=== PATIENT | female | born 1935 | race Caucasian/White ===

== ENCOUNTER 2020-07-30 07:02 | Inpatient (IN) | payer MEDICARE, OTHER ==
[~2020-07-30] VITALS: Ht 149.9 cm; Wt 68.0 kg
[2020-07-30] MEDS ORDERED: ONDANSETRON PF 4 MG/2 ML VIAL. IVP ONE ×2 (07:15→10:00)
[2020-07-30] MEDS ORDERED: IV NORMAL SALINE 1,000ML 1,000 ML IV ONE (07:15)
--- NOTE | 2020-07-30 07:29 | PHYS DOC ---
Past History Past Medical History: No Pertinent History Past Surgical History: Other Alcohol Use: None Drug Use: None General Adult EDM: Chief Complaint: NAUSEA/VOMITING/DIARRHEA HPI: HPI: 84-year-old female presents with nausea, dry heaving and generally feeling ill. She went to her primary care physician last week and was diagnosed with a sinus infection. She was placed on an oral antibiotic. She got "really sick" for the next 3 days so she called her primary doctor back and he discontinued that medicine and then gave her an IM shot of antibiotics on Wednesday. The patient has continued to have nausea through the weekend. She has been unable to keep down solid food. She has been able to drink some but she is worried about being dehydrated. She has generalized abdominal pain. She had one episode of diarrhea yesterday. She denies fever or chills. She was tested negative for COVID-19. Review of Systems: Review of Systems: Constitutional: Denies fever or chills Eyes: Denies change in visual acuity HENT: Denies nasal congestion or sore throat Respiratory: Denies cough or shortness of breath Cardiovascular: Denies chest pain or edema GI: Generalized abdominal pain, nausea, vomiting, diarrhea. Denies bloody stools. : Denies dysuria Musculoskeletal: Denies back pain or joint pain Integument: Denies rash Neurologic: Denies headache, focal weakness or sensory changes Endocrine: Denies polyuria or polydipsia Lymphatic: Denies swollen glands Psychiatric: Denies depression or anxiety Current Medications: Current Meds: Current Medications Medications (Trade) Dose Ordered Sig/Salvatore Start Time Stop Time Status Last Admin Dose Admin Iohexol (Omnipaque 300 Mg/ml) 75 ml 1X ONCE 07/30/20 07:30 07/30/20 07:31 Ondansetron HCl (Zofran) 4 mg 1X ONCE 07/30/20 07:15 07/30/20 07:24 DC Sodium Chloride 1,000 ml @ 1,000 mls/hr 1X ONCE 07/30/20 07:15 07/30/20 08:14 Allergies: Allergies: Allergies Coded Allergies Type Severity Reaction Last Updated Verified No Known Drug Allergies 07/19/14 No Physical Exam: PE: Constitutional: Well developed, well nourished, obese, no acute distress, non- toxic appearance. [] HENT: Normocephalic, atraumatic, bilateral external ears normal, oropharynx moist, no oral exudates, nose normal. [] Eyes: PERRLA, EOMI, conjunctiva normal, no discharge. [] Neck: Normal range of motion, no tenderness, supple, no stridor. [] Cardiovascular: Heart rate regular rhythm, no murmur [] Lungs & Thorax: Bilateral breath sounds clear to auscultation [] Abdomen: Bowel sounds normal, soft, no tenderness, no masses, no pulsatile masses. [] Skin: Warm, dry, no erythema, no rash. [] Back: No tenderness, no CVA tenderness. [] Extremities: No tenderness, no cyanosis, no clubbing, ROM intact, no edema. [] Neurologic: Alert and oriented X 3, normal motor function, normal sensory function, no focal deficits noted. [] Psychologic: Affect normal, judgement normal, mood normal. [] EKG: EKG: Sinus rhythm, rate 68, leftward axis, no ST elevations or depressions, right bundle branch block. [] Radiology/Procedures: Radiology/Procedures: [] Impressions: EXAM: Chest, abdomen and pelvis CT with intravenous contrast. HISTORY: Pain. TECHNIQUE: Computed tomographic images of the chest, abdomen and pelvis were obtained following the administration of intravenous contrast. Multiplanar reformatting was performed. *One or more of the following individualized dose reduction techniques were utilized for this examination: 1. Automated exposure control. 2. Adjustment of the mA and/or kV according to patient size. 3. Use of iterative reconstruction technique. COMPARISON: None. FINDINGS: Chest: The heart is normal in size. There is calcified atherosclerotic plaque involving the aorta, main aortic branch vessels and coronary arteries. There is calcification of the bilateral valve annulus. There are nonspecific mediastinal and hilar lymph nodes. For reference purposes, there is a prominent precarinal lymph node measuring 1.9 cm. There is a right thyroid nodule measuring 2.1 cm. There may be a tiny cyst or nodule within the left thyroid lobe. There is no pneumothorax. There is no pleural effusion. There is multifocal groundglass infiltrate within the right greater than left upper lobes, right middle lobe and right greater than left lower lobes. There are superimposed right basilar atelectasis or scarring. There is no consolidation. There is degenerative change involving the thoracic spine. There is no acute or suspicious osseous finding. Abdomen and pelvis: There is a 1.2 cm simple cyst within the left hepatic lobe. The liver, gallbladder, pancreas, spleen, and adrenal glands are unremarkable. There are not nonobstructing bilateral renal stones, measuring 2 mm on the right and 5 mm on the left. The urinary bladder is unremarkable. The uterus is retroverted and otherwise unremarkable. The ovaries are unremarkable. There is colonic diverticulosis. There is no convincing diverticulitis. There is no bowel obstruction. The aorta is normal in caliber. There is no lymphadenopathy. There is lumbar scoliosis and multilevel degenerative change involving the lumbar spine. There is no acute or suspicious osseous finding. IMPRESSION: 1. Multifocal bilateral groundglass pulmonary infiltrate. Correlate for pneumonia. 2. Colonic diverticulosis without evidence of diverticulitis. 3. Bilateral nephrolithiasis. 4. Simple hepatic cyst. 5. 2.1 cm right thyroid nodule and possible tiny left thyroid nodule or cyst. This can be better assessed with a thyroid sonogram. 6. Nonspecific mediastinal and hilar lymph nodes. These are likely physiologic or reactive given the aforementioned pulmonary findings. Electronically signed by: Savannah Hernandez MD (07/30/2020 8:36 AM) [id number] DICTATED AND SIGNED BY: SAVANNAH HERNANDEZ MD DATE: 07/30/20 0836 CC: NELIA WEEKS DO; CARLOS SHARP MD ~ Heart Score: Risk Factors: Risk Factors: DM, Current or recent (<one month) smoker, HTN, HLP, family history of CAD, obesity. Risk Scores: Score 0 - 3: 2.5% MACE over next 6 weeks - Discharge Home Score 4 - 6: 20.3% MACE over next 6 weeks - Admit for Clinical Observation Score 7 - 10: 72.7% MACE over next 6 weeks - Early Invasive Strategies Course & Med Decision Making: Course & Med Decision Making Pertinent Labs and Imaging studies reviewed. (See chart for details) The patient's labs are essentially unremarkable. Her urinalysis shows some white cells but few bacteria. Her CT scan has some significant findings of the lungs, but she is not having any respiratory symptoms. She also has other incidental findings on CT. See official read for more details. When I asked the patient about this she does remember that she thinks she has an old lung finding. I do not believe this is acute pneumonia. Patient had an episode of diarrhea in the emergency room. She does appear dehydrated we have given her a liter of normal saline. I do believe she can safely go home given her dehydration status and general weakness. We have tested her for COVID-19 even though she had a negative test 3 weeks ago. I spoke with Dr. Staton and he has accepted the patient for admission. [] Dragon Disclaimer: Dragon Disclaimer: This electronic medical record was generated, in whole or in part, using a voice recognition dictation system. Departure Departure: Impression: Primary Impression: Vomiting and diarrhea Disposition: ADMITTED INPT THIS HOSP Admitting Physician: Gustabo Staton Condition: STABLE Referrals: DOMINIQUE WILKINSON (PCP) NELIA WEEKS DO Jul 30, 2020 07:29
[2020-07-30] MEDS ORDERED: IOHEXOL 300 MG/ML 75 ML VIAL. IV ONE (07:30)
[2020-07-30 07:31] LABS: BASO % 1 % (0-3); EOS % 0 % (0-3); HEMATOCRIT 43.1 % (36.0-47.0); HEMOGLOBIN 14.4 g/dL (12.0-15.5); LYMPH # 1.1 x10^3/uL (1.0-4.8); LYMPH % 26 % (24-48); MEAN CORPUSCULAR HEMOGLOBIN 32 pg (25-35); MEAN CORPUSCULAR HGB CONC 34 g/dL (31-37); MEAN CORPUSCULAR VOLUME 94 fL (79-100); MONO # 0.6 x10^3/uL (0.0-1.1); MONO % 15 % (0-9); NEUT # 2.4 x10^3uL (1.8-7.7); NEUT % 58 % (31-73); PLATELET COUNT 151 x10^3/uL (140-400); RED BLOOD COUNT 4.57 x10^6/uL (3.50-5.40); RED CELL DISTRIBUTION WIDTH 11.9 % (11.5-14.5); WHITE BLOOD COUNT 4.2 x10^3/uL (4.0-11.0)
[2020-07-30 07:37] LABS: CALCIUM 8.5 mg/dL (8.5-10.1); CREATININE 1.2 mg/dL (0.6-1.0); GFR 42.6; POTASSIUM 3.5 mmol/L (3.5-5.1)
--- NOTE | 2020-07-30 07:38 | EKG ---
[address] [address] Test Date: 2020-07-30 Test Time: 07:30:48 Pat Name: MARIA E DODSON Department: Room: Gender: F Classics Professor: : [id number] Requested By: NELIA WEEKS Order Number: [id number] Reading MD: Dutch Ingram Measurements Intervals [place] Rate: 68 P: 36 [place]: 168 QRS: -17 QRSD: 112 T: 38 QT: 418 QTc: 449 Interpretive Statements SINUS RHYTHM LEFTWARD AXIS Electronically Signed On 07-31-2020 9:19:[address] TECH by Dutch Ingram
[2020-07-30 07:43] LABS: ALBUMIN 3.5 g/dL (3.4-5.0); ALBUMIN/GLOBULIN RATIO 0.9 (1.0-1.7); TOTAL BILIRUBIN 0.9 mg/dL (0.2-1.0); TOTAL PROTEIN 7.5 g/dL (6.4-8.2)
--- NOTE | 2020-07-30 08:40 | RAD ---
EXAM: Chest, abdomen and pelvis CT with intravenous contrast. HISTORY: Pain. TECHNIQUE: Computed tomographic images of the chest, abdomen and pelvis were obtained following the administration of intravenous contrast. Multiplanar reformatting was performed. *One or more of the following individualized dose reduction techniques were utilized for this examination: 1. Automated exposure control. 2. Adjustment of the mA and/or kV according to patient size. 3. Use of iterative reconstruction technique. COMPARISON: None. FINDINGS: Chest: The heart is normal in size. There is calcified atherosclerotic plaque involving the aorta, main aortic branch vessels and coronary arteries. There is calcification of the bilateral valve annulus. There are nonspecific mediastinal and hilar lymph nodes. For reference purposes, there is a prominent precarinal lymph node measuring 1.9 cm. There is a right thyroid nodule measuring 2.1 cm. There may be a tiny cyst or nodule within the left thyroid lobe. There is no pneumothorax. There is no pleural effusion. There is multifocal groundglass infiltrate within the right greater than left upper lobes, right middle lobe and right greater than left lower lobes. There are superimposed right basilar atelectasis or scarring. There is no consolidation. There is degenerative change involving the thoracic spine. There is no acute or suspicious osseous finding. Abdomen and pelvis: There is a 1.2 cm simple cyst within the left hepatic lobe. The liver, gallbladder, pancreas, spleen, and adrenal glands are unremarkable. There are not nonobstructing bilateral renal stones, measuring 2 mm on the right and 5 mm on the left. The urinary bladder is unremarkable. The uterus is retroverted and otherwise unremarkable. The ovaries are unremarkable. There is colonic diverticulosis. There is no convincing diverticulitis. There is no bowel obstruction. The aorta is normal in caliber. There is no lymphadenopathy. There is lumbar scoliosis and multilevel degenerative change involving the lumbar spine. There is no acute or suspicious osseous finding. IMPRESSION: 1. Multifocal bilateral groundglass pulmonary infiltrate. Correlate for pneumonia. 2. Colonic diverticulosis without evidence of diverticulitis. 3. Bilateral nephrolithiasis. 4. Simple hepatic cyst. 5. 2.1 cm right thyroid nodule and possible tiny left thyroid nodule or cyst. This can be better assessed with a thyroid sonogram. 6. Nonspecific mediastinal and hilar lymph nodes. These are likely physiologic or reactive given the aforementioned pulmonary findings. Electronically signed by: Savannah Barth MD (07/30/2020 8:36 AM) [id number]
[2020-07-30] MEDS ORDERED: CONTRAST GIVEN. MC PRN (10:15)
[2020-07-30 10:45] LABS: BACTERIA,URINE FEW /HPF (0-FEW); BILIRUBIN,URINE NEG (NEG); CLARITY,URINE HAZY; COLOR,URINE YELLOW; GLUCOSE,URINE NEG (NEG); NITRITE,URINE NEG (NEG); RBC,URINE OCC /HPF (0-2); UROBILINOGEN,URINE 0.2 mg/dL (0.2 mg/dL)
[2020-07-30 10:46] LABS: SQUAMOUS EPITHELIAL CELL,UR MANY /LPF
[2020-07-30] MEDS ORDERED: ONDANSETRON PF 4 MG/2 ML VIAL. IVP PRN (11:15)
--- NOTE | 2020-07-30 12:59 | HP ---
ADMIT DATE: 07/30/2020 ATTENDING PHYSICIAN: Dr. Hu. CHIEF COMPLAINT: Nausea, vomiting, diarrhea. HISTORY OF PRESENT ILLNESS: The patient is a very pleasant 84-year-old female, fairly active. She has been for the last 3 days. She went to see her primary care physician last week. She was placed on oral antibiotic, did not tolerate it well, was nauseated. She was given a shot of Rocephin on Wednesday. Continued to have symptoms of nausea over the weekend, throwing up, unable to keep anything down, drank some Gatorade. She is clinically dehydrated. She has had diarrhea. She tested negative for COVID-19. No hematemesis. No [id number] medication use. PAST MEDICAL HISTORY: Significant for degenerative arthritis. CURRENT MEDICATIONS: She is not on any significant prescription medications. ALLERGIES: She has no known drug allergies. SOCIAL HISTORY: She is a nonsmoker, nondrinker. She is . She lives independently. She takes care of several pets at home. She has been fairly independent. FAMILY HISTORY: Parents of relatively old age at 89 and 100 respectively. She is . She manages her household activity of daily living without any problems. REVIEW OF SYSTEMS: Significant for the GI symptoms. No fevers, no chills, nausea, some vomiting, no hematemesis. All other systems reviewed and turned to be negative. PHYSICAL EXAMINATION: GENERAL: When I saw her, this is a pleasant female. INITIAL VITAL SIGNS: Showed a blood pressure 141/73, pulse is 70 and regular, temperature 97.7 degrees Fahrenheit, oxygen saturation 94% on room air. HEENT: Head is without trauma. Pupils are reactive. Sclerae nonicteric. Oropharynx is clear. NECK: Supple, no bruits. LUNGS: Otherwise, clear to auscultation. CARDIOVASCULAR: Showed regular heart tones. No gallops. Peripheral pulses are palpable and full. ABDOMEN: Soft, obese, protuberant. No organomegaly. Bowel sounds are hypoactive. EXTREMITIES: Showed no cyanosis or edema. NEUROLOGIC: Focally intact. Speech is fluent. Rn Acute Care intact. SKIN: Warm and dry. PERTINENT LABORATORY AND X-RAY STUDIES: CT of the chest and abdomen found some ground glass pulmonary infiltrates. No symptoms or pneumonia. No old CTs or x-ray for comparison. She has colonic diverticulosis without evidence of diverticulitis. She has bilateral nephrolithiasis that is not causing obstruction, simple hepatic cyst, 2.1 cm right thyroid nodule and possible left tiny thyroid cyst. This can be assessed with further treatment at a later date. Nonspecific mediastinal hilar lymph nodes, most likely physiologic, otherwise no acute infiltrates identified. LABORATORY DATA: Hemoglobin is 14.4 g/dL, white count 4200. Electrolytes, BUN and creatinine all within normal range. Cardiac enzymes negative for coronary ischemia. ASSESSMENT: 1. An 84-year-old female with probable self-limiting viral gastroenteritis. 2. Mild dehydration clinically. 3. Incidental finding of thyroid nodules. This can be evaluated as an outpatient. 4. Abnormal CT without clinical symptoms of pneumonia. 5. COVID-19 swab has been reported negative. PLAN: 1. Admit to the inpatient unit. 2. Gentle IV hydration. 3. Diet as tolerated. 4. Symptomatic relief. 5. I will check a T4 and a TSH. KARLENE HU MD DR: VASU/kenn JOB#: [id number] / [id number] ESTIVEN Viera
[2020-07-30 13:00] VITALS: BP 124/60
[2020-07-30] MEDS ORDERED: SULF1TAB24 PO (14:48)
[2020-07-30] MEDS: IV NORMAL SALINE 1,000ML 1,000 ML IV SCH (14:56)
[2020-07-30 19:58] VITALS: BP 110/66
[2020-07-31 00:09] VITALS: BP 112/69
[2020-07-31] MEDS: IV NORMAL SALINE 1,000ML 1,000 ML IV SCH ×2 (05:13→16:52)
[2020-07-31 05:45] VITALS: BP 106/64
[2020-07-31 10:56] VITALS: BP 110/63
[2020-07-31 15:57] VITALS: BP 125/69
[2020-07-31 19:54] VITALS: BP 132/63
[2020-07-31] MEDS: ACETAMINOPHEN 325 MG TABLET PO PRN (20:20)
[2020-07-31 23:21] VITALS: BP 126/60
[2020-08-01] VITALS (7 sets, daily range): BP systolic 115–151; BP diastolic 54–82
[2020-08-01] MEDS: IV NORMAL SALINE 1,000ML 1,000 ML IV SCH (05:45)
[2020-08-01 06:40] LABS: HEMATOCRIT 36.3 % (36.0-47.0); HEMOGLOBIN 11.9 g/dL (12.0-15.5); RED BLOOD COUNT 3.84 x10^6/uL (3.50-5.40); RED CELL DISTRIBUTION WIDTH 12.2 % (11.5-14.5); WHITE BLOOD COUNT 2.8 x10^3/uL (4.0-11.0)
[2020-08-01 06:53] LABS: ALBUMIN 2.7 g/dL (3.4-5.0); ALBUMIN/GLOBULIN RATIO 0.8 (1.0-1.7); CALCIUM 7.8 mg/dL (8.5-10.1); CREATININE 0.9 mg/dL (0.6-1.0); GFR 59.4; POTASSIUM 3.4 mmol/L (3.5-5.1); TOTAL BILIRUBIN 0.4 mg/dL (0.2-1.0); TOTAL PROTEIN 5.9 g/dL (6.4-8.2)
[2020-08-01] MEDS: ONDANSETRON PF 4 MG/2 ML VIAL. IVP PRN ×2 (09:37→14:48)
--- NOTE | 2020-08-01 09:42 | PN ---
DATE: 07/31/2020 SUBJECTIVE: The patient is resting, slightly propped up in bed, in no apparent distress. On questioning her, she denied any further episodes of nausea and vomiting. Denied any diarrhea. Denied any chills, rigors, or fever. Denied any chest pain, shortness of breath, cough, phlegm or hemoptysis. PHYSICAL EXAMINATION: GENERAL: When I examined her this afternoon, she looked well, somewhat pale. No jaundice, cyanosis or thyromegaly. No jugular venous distention. No lower limb edema. VITAL SIGNS: Her heart rate was 65, blood pressure was 110/63, temperature 98, respiratory rate 20, and oxygen saturation was 93% on room air. HEAD, EYES, EARS, NOSE AND THROAT: Showed normocephalic, atraumatic. NECK: Supple. HEART: Showed normal first and second heart sounds. No gallop, rub or murmur. CHEST: Clear to auscultation. No crepitation or rhonchi. ABDOMEN: Distended, soft, nontender. NEUROLOGIC: She was awake, alert, responding appropriately. All cranial nerves intact. She moves extremities without difficulty. She ambulates without assistance or assistive devices. Her intake and output are incompletely recorded. LABORATORY DATA: Her lab work as of yesterday showed a serum sodium of 136, potassium 3.5, chloride 99, bicarbonate 24, anion gap of 13, BUN 19, creatinine 1.2, estimated GFR was 42 mL per minute. Her glucose was 111, calcium was 8.5. Total bilirubin, AST, ALT, alkaline phosphatase were normal. Total protein 7.5, albumin was 3.5, total T4 was 8.7. Her white cell count was 4200, hemoglobin 14.4, hematocrit 43, MCV 94 and platelet count of 151,000 with normal manual differential. Her urinalysis showed the urine was yellow, hazy with a pH of 6, specific gravity of 1.010. The urine was negative for protein and glucose. There was small amount of ketones, trace of blood, negative for nitrite, trace of leukocyte esterase, occasional rbc's, 11-20 wbc's, and very few bacteria. Her CT scan of the abdomen and pelvis showed multifocal bilateral ground glass pulmonary infiltrate correlate for pneumonia, colonic diverticulosis without evidence of diverticulitis, bilateral nephrolithiasis, simple hepatic cyst, 2.1 cm right thyroid nodule and possible tiny left thyroid nodule on CT scan nonspecific, mediastinal hilar lymph nodes. These are likely physiologic reactive given the aforementioned pulmonary finding. A chest CT scan showed the same finding. Her urine culture showed 3 or more organisms, I evaluated the result, consistent with colonization or contamination. ASSESSMENT: In summary, the patient was basically admitted with acute gastroenteritis. Her CT scan of the chest showed incidental finding of ground glass appearance and her COVID coronavirus by PCR was detected. The patient is asymptomatic. She remained hemodynamically stable, afebrile. PLAN: My plan is to repeat her lab works again tomorrow and we will decide if she remains stable, she can go home to quarantine herself for 2 weeks. TERRA COREAS MD DR: GWEN/kenn JOB#: [id number] / [id number]
[2020-08-01] MEDS: ACETAMINOPHEN 325 MG TABLET PO PRN ×2 (10:20→17:21)
[2020-08-01] MEDS ORDERED: ONDANSETRON PF 4 MG/2 ML VIAL. IVP PRN (15:00)
[2020-08-01] MEDS ORDERED: IV NORMAL SALINE 1,000ML 1,000 ML IV ONE (15:00)
[2020-08-01] MEDS ORDERED: AZITHROMYCIN 500 MG in IV NORMAL SALINE 250ML 250 ML IV ONE (15:30)
[2020-08-01] MEDS: ENOXAPARIN 40 MG/0.4 ML SYRINGE. SQ SCH (16:09)
[2020-08-01] MEDS: AA 3%/ELECTROLYTE-TPN SOLN/GLY 1,000 ML IV SCH (16:09)
[2020-08-01] MEDS: LACTOBACILLUS RHAMNOSUS GG 1 CAPSULE. PO SCH (20:59)
[2020-08-02] MEDS: AA 3%/ELECTROLYTE-TPN SOLN/GLY 1,000 ML IV SCH ×2 (05:20→18:55)
[2020-08-02 05:28] VITALS: BP 138/76
[2020-08-02] MEDS: LACTOBACILLUS RHAMNOSUS GG 1 CAPSULE. PO SCH ×2 (08:23→18:55)
[2020-08-02] MEDS: DEXAMETHASONE SOD PHOS 4 MG/ML VIAL. IVP SCH (08:23)
[2020-08-02 10:59] VITALS: BP 142/77
[2020-08-02 15:35] VITALS: BP 150/77
--- NOTE | 2020-08-02 15:39 | RAD ---
EXAM: Chest, single view. HISTORY: Shortness of breath. COMPARISON: CT dated 07/30/2020. FINDINGS: A frontal view of the chest is obtained. There has been no change in bilateral multifocal interstitial infiltrate in a predominant a right lower lobe distribution. No consolidation, pleural effusion or pneumothorax is seen. The heart is normal in size. IMPRESSION: No significant change in multifocal interstitial infiltrate, allowing for differences in imaging modality. Electronically signed by: Savannah Barth MD (08/02/2020 3:36 PM) [id number]
[2020-08-02] MEDS: ENOXAPARIN 40 MG/0.4 ML SYRINGE. SQ SCH (16:06)
[2020-08-02] MEDS: AZITHROMYCIN 250 MG TABLET. PO SCH (18:55)
[2020-08-02 19:49] VITALS: BP 122/66
[2020-08-02] MEDS: ACETAMINOPHEN 325 MG TABLET PO PRN (19:59)
[2020-08-02] MEDS: DOCUSATE SODIUM 100 MG CAPSULE PO SCH (19:59)
[2020-08-03 00:37] VITALS: BP 133/75
[2020-08-03 06:10] VITALS: BP 125/71
[2020-08-03 06:28] LABS: HEMATOCRIT 36.5 % (36.0-47.0); HEMOGLOBIN 12.2 g/dL (12.0-15.5); RED BLOOD COUNT 3.92 x10^6/uL (3.50-5.40)
[2020-08-03 06:37] LABS: ALBUMIN 2.7 g/dL (3.4-5.0); ALBUMIN/GLOBULIN RATIO 0.7 (1.0-1.7); GFR 52.6; TOTAL BILIRUBIN 0.3 mg/dL (0.2-1.0); TOTAL PROTEIN 6.5 g/dL (6.4-8.2)
[2020-08-03] MEDS: DEXAMETHASONE SOD PHOS 4 MG/ML VIAL. IVP SCH (08:18)
[2020-08-03] MEDS: POLYETHYLENE GLYCOL 3350 17 GM PACKET. PO SCH (08:18)
[2020-08-03] MEDS: DOCUSATE SODIUM 100 MG CAPSULE PO SCH ×3 (08:18→21:19)
[2020-08-03] MEDS: AA 3%/ELECTROLYTE-TPN SOLN/GLY 1,000 ML IV SCH ×2 (08:18→17:39)
[2020-08-03] MEDS: LACTOBACILLUS RHAMNOSUS GG 1 CAPSULE. PO SCH ×2 (08:18→21:19)
--- NOTE | 2020-08-03 08:46 | PN ---
DATE: 08/02/2020 SUBJECTIVE: The patient is resting, slightly propped up in bed, in no apparent respiratory distress. She is awake and alert, complaining of constipation. Also had some cough with mild chest pain. She is still dizzy, but less severe than before. PHYSICAL EXAMINATION: GENERAL: When I examined her, she looked pale. No jaundice, cyanosis or thyromegaly. No jugular venous distention. No lower limb edema. VITAL SIGNS: Her heart rate was 75, blood pressure was 142/77, temperature 97.6, respiratory rate 20 and oxygen saturation was 96% on room air. HEAD, EYES, EARS, NOSE AND THROAT: Showed normocephalic, atraumatic. NECK: Supple. HEART: Showed normal first and second heart sounds. No gallop, rub or murmur. CHEST: Clear to auscultation. No crepitation or rhonchi. ABDOMEN: Distended, soft, nontender. NEUROLOGIC: She is definitely awake and alert, responding appropriately. All cranial nerves are intact. Moves extremities without difficulty. Her intake over the last 24 hours was 2916. No output was recorded. LABORATORY DATA: Her most recent lab work as of yesterday showed serum sodium 144, potassium 3.4, chloride 111, bicarbonate 23, anion gap of 10. BUN 10, creatinine 0.9. Estimated GFR was 59 mL per minute. Her glucose was 85, calcium was 7.8. Total bilirubin, AST, ALT, alkaline phosphatase were normal. Total protein 5.9, albumin was 2.7. Her C-reactive protein was 17.8. Her D-dimer was 3.32 and her coronavirus with PCR was detectable. ASSESSMENT: Acute gastroenteritis. The patient was found to have dehydration, hypokalemia that has resolved. She does not have coronavirus by PCR. She continued for now to be mostly asymptomatic. She has cough with scanty, whitish sputum. Has had no further episodes of nausea or vomiting. No diarrhea. Her dizziness has improved after we gave her IV fluid. PLAN: My plan is to continue with IV antibiotic, IV steroids and DVT prophylaxis. I will repeat her labs again tomorrow as well as a chest x-ray and decide on further management accordingly. TERRA COREAS MD DR: GWEN/kenn JOB#: [id number] / [id number]
[2020-08-03] MEDS ORDERED: AZITHROMYCIN 250 MG TABLET. PO SCH (09:00)
[2020-08-03 11:08] VITALS: BP 123/64
[2020-08-03 14:57] VITALS: BP 140/60
[2020-08-03] MEDS: ENOXAPARIN 40 MG/0.4 ML SYRINGE. SQ SCH (15:31)
[2020-08-03] MEDS: AZITHROMYCIN 250 MG TABLET. PO SCH (16:55)
[2020-08-03 18:11] VITALS: BP 133/75
[2020-08-03] MEDS: ACETAMINOPHEN 325 MG TABLET PO PRN (21:19)
--- NOTE | 2020-08-03 21:39 | PN ---
DATE: 08/03/2020 SUBJECTIVE: The patient is resting, slightly propped up in bed, in no apparent distress. She stated that she is feeling generally much improved. She has continued to have cough with scanty sputum. However, she denied any chills, rigors, or fever. Denied any further episodes of dizziness or lightheadedness. She is now able to eat more. PHYSICAL EXAMINATION: GENERAL: When I examined her, there was no pallor, jaundice, cyanosis, or thyromegaly. No jugular venous distension. No limb edema. VITAL SIGNS: Her heart rate was 73, blood pressure was 140/60, temperature was 98, respiratory rate 20, and oxygen saturation was 97% on room air. HEAD, EYES, EARS, NOSE AND THROAT: She is normocephalic, atraumatic. NECK: Supple. CARDIAC: Normal first and second heart sounds. No gallop or murmur. CHEST: Clear to auscultation. No crepitation or rhonchi. ABDOMEN: Distended, soft, nontender. NEUROLOGIC: She is grossly intact. Her intake was 2850. No output was recorded. LABORATORY DATA: Her lab work this morning showed a white cell count of 4000, hemoglobin 12, hematocrit 36, MCV 93, and a platelet count of 165,000. Serum sodium was 141, potassium 4, chloride 108, bicarbonate 24, anion gap of 9, BUN 16, creatinine 1, estimated GFR was 52 mL per minute. Her glucose 138, calcium was 9. Total bilirubin, AST, ALT, alkaline phosphatase were normal. Her C-reactive protein was 17.8 mg/dL. Her total protein is 6.5, albumin 2.7. Her TSH was 2.511 and total T4 was 8.7. Her D-dimer was 3.32. Urinalysis showed that she has 11-20 wbc's and very few bacteria. Her urine culture showed 3 or more organisms saturated results consistent with colonization or contamination. ASSESSMENT: This is an 84-year-old female patient who was admitted originally with acute gastroenteritis, recurrent bouts of nausea, vomiting and diarrhea that all subsided. Her CT scan of the chest showed incidental finding of ground glass opacities and her COVID coronavirus by PCR was detectable. However, the patient continues to be generally asymptomatic. She remained hemodynamically stable, afebrile. Her kidney function is normal. Her white cell count is within normal range and liver enzymes are all within normal range. PLAN: To continue with IV ceftriaxone and Zithromax. Continue with dexamethasone. Continue with DVT prophylaxis. TERRA COREAS MD DR: GWEN/kenn JOB#: [id number] / [id number]
[2020-08-03 22:00] VITALS: BP 140/80
[2020-08-04 06:17] VITALS: BP 142/75
[2020-08-04] MEDS: AA 3%/ELECTROLYTE-TPN SOLN/GLY 1,000 ML IV SCH ×2 (07:42→23:11)
[2020-08-04] MEDS: DEXAMETHASONE SOD PHOS 4 MG/ML VIAL. IVP SCH (07:43)
[2020-08-04] MEDS: LACTOBACILLUS RHAMNOSUS GG 1 CAPSULE. PO SCH ×2 (07:43→19:35)
[2020-08-04] MEDS: DOCUSATE SODIUM 100 MG CAPSULE PO SCH ×2 (07:53→19:35)
[2020-08-04] MEDS: POLYETHYLENE GLYCOL 3350 17 GM PACKET. PO SCH (07:53)
[2020-08-04 10:58] VITALS: BP 138/71
[2020-08-04] MEDS: ENOXAPARIN 40 MG/0.4 ML SYRINGE. SQ SCH (14:51)
[2020-08-04] MEDS: AZITHROMYCIN 250 MG TABLET. PO SCH (14:51)
[2020-08-04 15:29] VITALS: BP 125/71
[2020-08-04 20:00] VITALS: BP 130/71
--- NOTE | 2020-08-04 21:42 | PN ---
DATE: 08/04/2020 SUBJECTIVE: The patient is resting, slightly propped up in bed, in no apparent respiratory distress. She is not feeling well. She started having nausea and had diarrhea last night, she could not take any of her lunch today. PHYSICAL EXAMINATION: GENERAL: When I examined her, she looked pale, but no jaundice or cyanosis. No lymphadenopathy, no thyromegaly. No jugular venous distention. No lower limb edema. VITAL SIGNS: Her heart rate was 91, blood pressure was 138/71, temperature was 98.2, respiratory rate 20, and oxygen saturation was 93%. HEAD, EYES, EARS, NOSE AND THROAT: Normocephalic, atraumatic. NECK: Supple. HEART: Normal first and second heart sounds. No gallop or murmur. CHEST: Clear to auscultation. No crepitation or rhonchi. ABDOMEN: Distended, soft, nontender. NEUROLOGIC: She is awake, alert, responding appropriately. All cranial nerves intact. She moves extremities without difficulty. Her intake over the last 24 hours was 1200, no output was recorded. LABORATORY DATA: As of yesterday, her white cell count was 4000, hemoglobin 12, hematocrit 36, MCV 93, platelet count 265,000. Her chemistry showed a serum sodium 141, potassium 4, chloride 108, bicarbonate 24, anion gap of 9, BUN 16, creatinine 1, estimated GFR was 52 mL per minute. Her glucose 138, calcium was 9. Total bilirubin, AST, ALT, alkaline phosphatase were normal. Total protein was 6.5, albumin 2.7 and C-reactive protein was 17.8. D-dimer was high at 3.32. Urinalysis showed 11-20 wbc's, trace leukocyte esterase, few bacteria. Her coronavirus by PCR was detectable. Her chest x-ray continued to show multifocal interstitial infiltrate, allowing for differences in imaging modality. CT scan showed that she has multifocal bilateral ground glass pulmonary infiltrate. She has colonic diverticulosis, bilateral nephrolithiasis. ASSESSMENT: Coronavirus pneumonia, acute gastroenteritis, recurrent. The patient has nausea, but no vomiting. Did have diarrhea last night. The patient now having some nausea and some diarrhea. Denied any vomiting. Denied any chest pain, shortness of breath, chills, rigors or fever. PLAN: My plan is to continue with TPN. Continue with IV antibiotic. Continue IV dexamethasone, continue to maintain her oxygen saturation at 93-94% on room air. TERRA COREAS MD DR: GWEN/kenn JOB#: [id number] / [id number]
[2020-08-04] MEDS: ACETAMINOPHEN 325 MG TABLET PO PRN (23:11)
[2020-08-05 06:43] LABS: ALBUMIN 2.7 g/dL (3.4-5.0); ALBUMIN/GLOBULIN RATIO 0.7 (1.0-1.7); CALCIUM 9.5 mg/dL (8.5-10.1); GFR 52.6; POTASSIUM 4.2 mmol/L (3.5-5.1); TOTAL BILIRUBIN 0.2 mg/dL (0.2-1.0); TOTAL PROTEIN 6.4 g/dL (6.4-8.2)
[2020-08-05 06:45] VITALS: BP 137/70
[2020-08-05 07:08] LABS: HEMATOCRIT 35.9 % (36.0-47.0); HEMOGLOBIN 11.7 g/dL (12.0-15.5); RED BLOOD COUNT 3.82 x10^6/uL (3.50-5.40); WHITE BLOOD COUNT 6.3 x10^3/uL (4.0-11.0)
[2020-08-05 07:09] LABS: RED CELL DISTRIBUTION WIDTH 11.4 % (11.5-14.5)
[2020-08-05] MEDS: POLYETHYLENE GLYCOL 3350 17 GM PACKET. PO SCH (08:30)
[2020-08-05] MEDS: DOCUSATE SODIUM 100 MG CAPSULE PO SCH (08:30)
[2020-08-05] MEDS: LACTOBACILLUS RHAMNOSUS GG 1 CAPSULE. PO SCH (08:30)
[2020-08-05] MEDS: DEXAMETHASONE SOD PHOS 4 MG/ML VIAL. IVP SCH (08:30)
[2020-08-05 10:48] VITALS: BP 142/80
[2020-08-05] MEDS ORDERED: CEFD300C PO (13:57)
[2020-08-05] MEDS ORDERED: ONDA4TAB7 PO (13:57)
[2020-08-05] MEDS ORDERED: DEXA4TAB PO (13:57)
--- NOTE | 2020-08-05 14:03 | DISCH ---
HOME HEALTH DISCHARGE/MEDS DISCHARGE INFORMATION: Discharge Date: Aug 05, 2020 Final Diagnosis: Problems Medical Problems: (1) Vomiting and diarrhea Status: Acute Condition on Discharge: Stable CODE STATUS: Code Status: Full HOME HEALTH: Face to Face: I certify this patient is under my care and that I, or a nurse practitioner or physician's assistant golf professional working with me, had a face to face encounter that meets the physician face to face encounter requirements with this patient on 08/05/2020 POST DISCHARGE ORDERS: Activity Instructions for Disc: Resume previous activity Weight Bearing Status after Di: As tolerated DIET AFTER DISCHARGE: Regular CERTIFICATION STATEMENT: Certification Statement: Based on the above finding, I certify that this patient is confined to the home and needs intermittent group home care, physical therapy and/or speech therapy, or continues to need occupational therapy.~ This patient is under my care, and I have initiated the establishment of the plan of care.~ This patient will be followed by myself or a community physician who will periodically review the plan of care. DISCHARGE MEDICATIONS: Home Meds Active Scripts Dexamethasone (DEXAMETHASONE) 4 Mg Tablet, 4 TAB PO DAILY for COVID 19 for 6 Days, #24 TAB Prov:TERRA COREAS MD 08/05/20 Ondansetron Hcl (ZOFRAN) 4 Mg Tablet, 1 TAB PO Q6HRS for NV for 6 Days, #24 TAB Prov:TERRA COREAS MD 08/05/20 Cefdinir (CEFDINIR) 300 Mg Capsule, 1 CAP PO BID for CAP for 5 Days, #10 CAP Prov:TERRA COREAS MD 08/05/20 Discontinued Reported Medications Info (NO KNOWN MEDICATIONS PRIOR TO ADMISSTION) Each, 1 EACH MC, EACH 07/19/14 Sulfamethoxazole/Trimethoprim (BACTRIM DS TABLET) 1 Each Tablet, 1 TAB PO BID for SINUS INFECTION for 7 Days, #14 TAB 0 Refills 07/30/20 TERRA COREAS MD Aug 05, 2020 14:03
--- NOTE | 2020-08-05 15:22 | DS ---
DATE OF DISCHARGE: HOSPITAL COURSE: The patient is an 84-year-old female patient who was originally admitted with a complaint of recurrent bouts of nausea, vomiting and diarrhea over the last 2 days prior to admission. She was seen by her primary care physician the week before placed on oral antibiotic, but did not tolerate it well. She was given a shot of Rocephin on Wednesday. She continued to have symptoms of nausea over the weekend, throwing up until and unable to keep anything by mouth and she came to the Emergency Room, clinically dehydrated, has had diarrhea and tested negative for COVID-19. She denied any hematemesis, melena, or hematochezia. She was started on IV fluid and basically was tested again for COVID-19 and unfortunately it came back positive. She continued to have episodes of nausea, vomiting, dizziness and we did start her initially on PPN and her symptoms gradually improved; however, she has never had any fever, no shortness of breath and has maintained her oxygen saturation at 96% on room air. Her white cell count has remained stable, has no leukopenia or thrombocytopenia and her chemistry remained stable with no transaminitis and as she remained stable, a decision was made to discharge her home with home health. PHYSICAL EXAMINATION: GENERAL: When I saw her this afternoon, she looked well and was clearly in no apparent respiratory distress. No pallor, jaundice, cyanosis or thyromegaly. No jugular venous distention. No lower limb edema. VITAL SIGNS: Her heart rate was 65, blood pressure was 142/80, temperature was 97.2, respiratory rate was 20, and oxygen saturation was 96%. HEAD, EYES, EARS, NOSE AND THROAT: Normocephalic, atraumatic. NECK: Supple. CARDIAC: Normal first and second heart sounds. No gallop, rub or murmur. CHEST: Clear to auscultation. No crepitation or rhonchi. ABDOMEN: Scaphoid, soft, nontender. NEUROLOGIC: She is awake, alert, responding appropriately. All cranial nerves intact. EXTREMITIES: She moves extremities without difficulty. She ambulates without assistance or assistive devices. Her intake over the last 24 hours and output were incompletely recorded. LABORATORY DATA: This morning showed a white cell count of 6300, hemoglobin 12, hematocrit 36, MCV 94 and platelet count of 198,000. Her chemistry showed a serum sodium 141, potassium 4.2, chloride 107, bicarbonate 25, anion gap of 9, BUN 25, creatinine 1, estimated GFR was 52 mL per minute. Her glucose 128, calcium was 9.5. Total bilirubin, AST, ALT, alkaline phosphatase were normal. Total protein was 6.4, albumin was 2.7. Her urinalysis showed the urine was yellow, hazy with a pH of 6, specific gravity of 1.010. The urine was negative for protein and glucose. There was trace of ketones, trace of blood, negative for trace of leukocyte esterase, 11-20 wbc's, and very few bacteria. Her urine culture was negative. DISCHARGE MEDICATIONS: The patient will be discharged home on cefdinir 300 mg twice a day for 5 more days, dexamethasone tapering fashion and ondansetron ODT as needed for nausea and vomiting. FINAL DISCHARGE DIAGNOSES: 1. Asymptomatic COVID-19 infection. 2. Nausea, vomiting, and diarrhea, resolved. 3. Acute kidney injury, resolved. 4. Degenerative joint disease. TERRA COREAS MD DR: GWEN/kenn JOB#: [id number] / [id number]
== END 2020-08-05 16:35 | disposition home health service (06) | DRG 177 ==
LOC: ER 07:02 → 1 SOUTH 12:00 → ER 13:06
PROVIDERS: ADMIT Hospitalist; ATTEND Hospitalist
DX: U07.1 COVID-19 (principal); J12.89 Other viral pneumonia; N17.9 Acute kidney failure, unspecified; A08.4 Viral intestinal infection, unspecified; E04.2 Nontoxic multinodular goiter; E86.0 Dehydration; K57.30 Diverticulosis of large intestine without perforation or abscess without bleeding; K76.89 Other specified diseases of liver; M19.90 Unspecified osteoarthritis, unspecified site; N20.0 Calculus of kidney; K59.00 Constipation, unspecified; E87.6 Hypokalemia; Z88.8 Allergy status to other drugs, medicaments and biological substances
CPT/HCPCS: 36415; 71045; 71250; 74177; 80053; 81001; 84436; 84443; 84484; 85025; 85027; 85379; 86140; 87086; 93005; 96374; 96376; J0456; J0696; J1100; J1650; J2405; J3490; J7050; Q9967; U0003; 97530; 99285-25; J7030

== ENCOUNTER → 2021-02-26 | Day surgery (SDC) | payer MEDICARE, OTHER ==
[~2021-02-26] MED LIST: ACETAMINOPHEN 500 MG TABLET PO PRN; BALANCED SALT IRRIG SOLN NO.2 500 ML IO ONE; BENZONATATE 100 MG CAPSULE. PO PRN; BRIMONIDINE 0.2% OPHTH SOLUTION 5ML BOTTLE. OS ONE; CEFD300C PO; CEFUROXIME OPHTH 4 MG/0.4 ML SYRINGE. OS ONE; CHONDROIT-SOD-HYALURONATE KIT. OS ONE; DEXA4TAB PO; IBUPROFEN 200 MG TABLET PO PRN; LIDO/EPI IN BSS OPHTH 2.7 ML SYRINGE. OS ONE; LIDOCAINE 2% JELLY 6ML IN APPLICATOR. ONE; MIDAZOLAM HCL PF 2 MG/2 ML VIAL. ONE; ONDA4TAB7 PO; PHENYLEPHRINE 10% OPHTH SOLUTION 5ML BOTTLE. OS PRN; POVIDONE-IODINE 5% OPHTH SOLUTION 30ML BOTTLE. ONE; POVIDONE-IODINE 5% OPHTH SOLUTION 30ML BOTTLE. OS ONE; POVIDONE-IODINE 5% OPHTH SOLUTION 30ML BOTTLE. OS PRN; PROPARACAINE 0.5% OPHTH SOLUTION 15ML BOTTLE. OS ONE; PROPARACAINE 0.5% OPHTH SOLUTION 15ML BOTTLE. OS PRN; SULF1TAB24 PO; prednisoLONE ACETATE 1% OPHTH SUSPENSION 5ML BOTTLE. OS ONE
[2021-02-26] MEDS: TROPICAMIDE 1% OPHTH SOLUTION 15ML BOTTLE. OS SCH ×3 (08:46→08:55)
[2021-02-26] MEDS: PHENYLEPHRINE 2.5% OPHTH SOLUTION 2ML BOTTLE. OS SCH ×3 (08:46→08:55)
[2021-02-26] MEDS: TOBRAMYCIN 0.3% OPHTH SOLUTION 5ML BOTTLE. OS SCH ×2 (08:46→08:50)
[2021-02-26] MEDS: KETOROLAC TROMETHAMINE 0.5% OPHTH SOLUTION BOTTLE. OS SCH ×2 (08:46→08:50)
--- NOTE | 2021-02-26 10:27 | PDOC4 ---
SURGEON: Rhonda Langley MD Date of Procedure: 02/26/21 PREOP Diagnosis Visually significant cataract: Left Eye OS POSTOP Diagnosis Same PROCEDURE: Phaco w/ posterior chamber IOL: Left Eye OS ANESTHESIA Deep forniceal periocular 2% Lidocaine jelly Rosalie/retro bulbar block with 2% Lidocaine with 0.5% Marcaine DESCRIPTION OF PROCEDURE The risks, benefits, and alternatives were discussed with the patient who elected to proceed. Informed consent was obtained in writing and placed in the chart After anesthetizing the eye topically, the patient was taken to the operating room, and the operative eye was prepped and draped in the usual sterile fashion for ocular surgery. A wire lid speculum was placed. A 1-mm clear corneal paracentesis incision was created with the side-port blade at a position three o'clock hours clockwise from the temporal cornea. Then, 1% non-preserved Lidocaine with epinephrine was injected into the anterior chamber followed by viscoelastic. Cotton-tipped applicators were used to stabilize the globe, and a 2.4 mm keratome was used to create a self-sealing incision in clear cornea at the temporal limbus. The Utrata forceps were used to create a continuous curvilinear capsulorrhexis. Balanced saline solution was injected via cannula beneath the capsulorrhexis edge to hydrodissect the lens nucleus and cortex from the lens capsule. The phacoemulsification handpiece and a chopping instrument were then used to remove the lens nucleus. The remaining epinuclear material and cortex were removed with the irrigation/aspiration handpiece. Visc oelastic was used to re-inflate the lens capsule, and the intraocular lens was injected directly into the capsular bag. The corneal wound edges were hydrated with balanced salt solution on a cannula and the irrigation/aspiration handpiece was used to extract the remaining viscoelastic. Cefuroxime 0.1mg/ml / Vigamox 0.5% was injected into the anterior chamber intracamerally. The wounds were inspected and found to be watertight at an appropriate intraocular pressure. Topical antibiotic drops were placed on the corneal surface. LRI: No If Yes, Number [] [place] [] Length [] degrees Depth [] microns Incision [place]: 180 Toric Lens [place] [] Patch/shield with Maxitrol/Tobradex/Erythromycin ointment: Yes No Co-managed patients/postop examination stable for co-management with referring doctor. EBL EBL: None SPECIMANS COLLECTED Specimens Collected: None RHONDA LANGLEY MD Feb 26, 2021 10:27
[2021-02-26 10:39] VITALS: BP 149/89
== END | disposition home or self-care (01) ==
LOC: SURG 08:32
PROVIDERS: ATTEND Ophthalmology
DX: H25.12 Age-related nuclear cataract, left eye (principal); M19.90 Unspecified osteoarthritis, unspecified site; E04.2 Nontoxic multinodular goiter; Z79.899 Other long term (current) drug therapy
CPT/HCPCS: 66984; J2250; V2632

== ENCOUNTER → 2021-03-20 | Day surgery (SDC) | payer MEDICARE, OTHER ==
[~2021-03-20] MED LIST changes: +BRIMONIDINE 0.2% OPHTH SOLUTION 5ML BOTTLE. OD ONE; -BRIMONIDINE 0.2% OPHTH SOLUTION 5ML BOTTLE. OS ONE; +CEFUROXIME OPHTH 4 MG/0.4 ML SYRINGE. OD ONE; -CEFUROXIME OPHTH 4 MG/0.4 ML SYRINGE. OS ONE; +CHONDROIT-SOD-HYALURONATE KIT. OD ONE; -CHONDROIT-SOD-HYALURONATE KIT. OS ONE; +IPRATRPIUM/ALBUTEROL 0.5/2.5MG 3 ML NEBU. NEB PRN; +IV RINGERS SOLUTION,LACTATED 1,000 ML IV SCH; +LIDO/EPI IN BSS OPHTH 2.7 ML SYRINGE. OD ONE; -LIDO/EPI IN BSS OPHTH 2.7 ML SYRINGE. OS ONE; +MIDAZOLAM HCL PF 2 MG/2 ML VIAL. IV ONE; +ONDANSETRON PF 4 MG/2 ML VIAL. IV PRN; +PHENYLEPHRINE 10% OPHTH SOLUTION 5ML BOTTLE. OD PRN; -PHENYLEPHRINE 10% OPHTH SOLUTION 5ML BOTTLE. OS PRN; +POVIDONE-IODINE 5% OPHTH SOLUTION 30ML BOTTLE. OD ONE; +POVIDONE-IODINE 5% OPHTH SOLUTION 30ML BOTTLE. OD PRN; -POVIDONE-IODINE 5% OPHTH SOLUTION 30ML BOTTLE. OS ONE; -POVIDONE-IODINE 5% OPHTH SOLUTION 30ML BOTTLE. OS PRN; +PROPARACAINE 0.5% OPHTH SOLUTION 15ML BOTTLE. OD ONE; +PROPARACAINE 0.5% OPHTH SOLUTION 15ML BOTTLE. OD PRN; -PROPARACAINE 0.5% OPHTH SOLUTION 15ML BOTTLE. OS ONE; -PROPARACAINE 0.5% OPHTH SOLUTION 15ML BOTTLE. OS PRN; +prednisoLONE ACETATE 1% OPHTH SUSPENSION 5ML BOTTLE. OD ONE; -prednisoLONE ACETATE 1% OPHTH SUSPENSION 5ML BOTTLE. OS ONE
[2021-03-20] MEDS: KETOROLAC TROMETHAMINE 0.5% OPHTH SOLUTION BOTTLE. OD SCH ×2 (08:05→08:10)
[2021-03-20] MEDS: TROPICAMIDE 1% OPHTH SOLUTION 15ML BOTTLE. OD SCH ×3 (08:05→08:20)
[2021-03-20] MEDS: TOBRAMYCIN 0.3% OPHTH SOLUTION 5ML BOTTLE. OD SCH ×2 (08:06→08:10)
[2021-03-20] MEDS: PHENYLEPHRINE 2.5% OPHTH SOLUTION 2ML BOTTLE. OD SCH ×3 (08:06→08:20)
--- NOTE | 2021-03-20 09:23 | PDOC4 ---
SURGEON: Rhonda Langley MD Date of Procedure: 03/20/21 PREOP Diagnosis Visually significant cataract: Right Eye OD POSTOP Diagnosis Same PROCEDURE: Phaco w/ posterior chamber IOL: Right Eye OD ANESTHESIA Deep forniceal periocular 2% Lidocaine jelly Rosalie/retro bulbar block with 2% Lidocaine with 0.5% Marcaine DESCRIPTION OF PROCEDURE The risks, benefits, and alternatives were discussed with the patient who elected to proceed. Informed consent was obtained in writing and placed in the chart After anesthetizing the eye topically, the patient was taken to the operating room, and the operative eye was prepped and draped in the usual sterile fashion for ocular surgery. A wire lid speculum was placed. A 1-mm clear corneal paracentesis incision was created with the side-port blade at a position three o'clock hours clockwise from the temporal cornea. Then, 1% non-preserved Lidocaine with epinephrine was injected into the anterior chamber followed by viscoelastic. Cotton-tipped applicators were used to stabilize the globe, and a 2.4 mm keratome was used to create a self-sealing incision in clear cornea at the temporal limbus. The Utrata forceps were used to create a continuous curvilinear capsulorrhexis. Balanced saline solution was injected via cannula beneath the capsulorrhexis edge to hydrodissect the lens nucleus and cortex from the lens capsule. The phacoemulsification handpiece and a chopping instrument were then used to remove the lens nucleus. The remaining epinuclear material and cortex were removed with the irrigation/aspiration handpiece. V iscoelastic was used to re-inflate the lens capsule, and the intraocular lens was injected directly into the capsular bag. The corneal wound edges were hydrated with balanced salt solution on a cannula and the irrigation/aspiration handpiece was used to extract the remaining viscoelastic. Cefuroxime 0.1mg/ml / Vigamox 0.5% was injected into the anterior chamber intracamerally. The wounds were inspected and found to be watertight at an appropriate intraocular pressure. Topical antibiotic drops were placed on the corneal surface. LRI: No If Yes, Number [] [place] [] Length [] degrees Depth [] microns Incision [place]: 180 Toric Lens [place] [] Patch/shield with Maxitrol/Tobradex/Erythromycin ointment: Yes No Co-managed patients/postop examination stable for co-management with referring doctor. EBL EBL: None SPECIMANS COLLECTED Specimens Collected: None RHONDA LANGLEY MD Mar 20, 2021 09:23
[2021-03-20 09:33] VITALS: BP 140/72
== END | disposition home or self-care (01) ==
LOC: SURG 07:35
PROVIDERS: ATTEND Ophthalmology
DX: H25.11 Age-related nuclear cataract, right eye (principal); E04.2 Nontoxic multinodular goiter; M19.90 Unspecified osteoarthritis, unspecified site; Z79.899 Other long term (current) drug therapy; Z88.8 Allergy status to other drugs, medicaments and biological substances; Z87.442 Personal history of urinary calculi
CPT/HCPCS: 66984; J2250; V2632